=== PATIENT | female | born 1985 | race Caucasian/White ===

== ENCOUNTER 2016-09-04 23:22 | Inpatient (IN) | payer BC ==
[~2016-09-04 23:22] MED LIST: DURICEF500 MG PO; IBUPROFEN800 MG PO; NO HOME MEDS; NORCO 5/325 TAB1 TAB PO; PERCOCET 5/3251 TAB PO; PRENATAL1 EACH PO
[2016-09-05 00:04] LABS: BASO % 0.1 % (0-2); EOS % 0.5 % (0-7); EOSINOPHIL ABSOLUTE COUNT 0.1 tho/cmm (0.0-0.7); IMMATURE GRANULOCYTES ABSOLUTE 0.05 tho/cmm (0-0.03); IMMATURE GRANULOCYTES PERCENT 0.4 % (0-0.3); LYMPH % 16.6 % (20-45); LYMPH ABSOLUTE COUNT 2.3 tho/cmm (0.8-4.5); MCH (MEAN CORPUSCULAR HGB) 30.4 pg (28.0-32.0); MCHC MEAN CORPUSCULAR HGB CONC 33.3 % (32.0-36.0); MCV (MEAN CELL VOLUME) 91.1 fl (82.0-96.0); MONO % 3.6 % (0-12); MONOCYTE ABSOLUTE COUNT 0.5 tho/cmm (0.0-1.2); NEUTROPHILS % 78.8 % (40-80); PLATELET COUNT 158 tho/cmm (150-450); RED BLOOD COUNT 3.95 mil/cmm (4.00-5.20); RED CELL DISTRIBUTION WIDTH 12.9 % (12.4-16.4); WHITE BLOOD COUNT 13.9 tho/cmm (4.0-10.0)
[2016-09-05 09:52] LABS: BASO % 0.1 % (0-2); EOS % 0.1 % (0-7); HCT-HEMATOCRIT 33.6 % (34.0-49.0); HGB-HEMOGLOBIN 11.2 gm/dl (12.0-15.5); IMMATURE GRANULOCYTES ABSOLUTE 0.05 tho/cmm (0-0.03); IMMATURE GRANULOCYTES PERCENT 0.3 % (0-0.3); LYMPH % 12.8 % (20-45); LYMPH ABSOLUTE COUNT 1.8 tho/cmm (0.8-4.5); MCH (MEAN CORPUSCULAR HGB) 30.2 pg (28.0-32.0); MCHC MEAN CORPUSCULAR HGB CONC 33.3 % (32.0-36.0); MCV (MEAN CELL VOLUME) 90.6 fl (82.0-96.0); MEAN PLATELET VOLUME 10.3 cmc (9.4-12.4); MONO % 3.5 % (0-12); MONOCYTE ABSOLUTE COUNT 0.5 tho/cmm (0.0-1.2); NEUTROPHILS % 83.2 % (40-80); PLATELET COUNT 153 tho/cmm (150-450); RED BLOOD COUNT 3.71 mil/cmm (4.00-5.20); RED CELL DISTRIBUTION WIDTH 12.9 % (12.4-16.4); WHITE BLOOD COUNT 14.4 tho/cmm (4.0-10.0)
[2016-09-07] MEDS ORDERED: IBUPROFEN800 M1 PO (10:32)
== END 2016-09-07 13:00 | DRG 774 ==
LOC: LDR 23:22 → OBGD 09-05 04:30
PROVIDERS: Advanced Practice Midwife; ADMIT Advanced Practice Midwife
PROC: 10E0XZZ Delivery of Products of Conception, External Approach (ICD-10-PCS; principal; 2016-09-05)
PROC: 0UQMXZZ Repair Vulva, External Approach (ICD-10-PCS; 2016-09-05)
DX: O60.14X0 Preterm labor third trimester with preterm delivery third trimester, not applicable or unspecified (principal); O10.02 Pre-existing essential hypertension complicating childbirth; O34.211 Maternal care for low transverse scar from previous cesarean delivery; Z3A.36 36 weeks gestation of pregnancy; Z37.0 Single live birth; Z87.891 Personal history of nicotine dependence; O99.344 Other mental disorders complicating childbirth; F41.9 Anxiety disorder, unspecified; E28.2 Polycystic ovarian syndrome; O34.80 Maternal care for other abnormalities of pelvic organs, unspecified trimester; O70.0 First degree perineal laceration during delivery
CPT/HCPCS: J2590; J2791